=== PATIENT | female | born 1990 | race African-American/Black ===

== ENCOUNTER 2016-08-24 12:10 | Emergency (ER) | payer SELFPAY ==
[2016-08-24 12:28] VITALS: BP 120/88
--- NOTE | 2016-08-24 13:00 | EDM.PDOC ---
ED HPI GENERAL MEDICAL PROBLEM - General Chief Complaint: General Stated Complaint: BREAST PAIN Time Seen by Provider: 08/24/16 12:43 Source of Information: Reports: Patient History Limitations: Reports: No Limitations - History of Present Illness INITIAL COMMENTS - FREE TEXT/NARRATIVE: Patient is a 26-year-old female who presents to the ED with concerns of bilateral breast pain and having a STD's. In addition patients last menstrual cycle was August 18, 2016 and was short and thus she is concerned about being . Patient states her fianc traveled back to [place] and had sexual intercourse with another female of unknown sexual history. She is concerned she may have STDs. At this point she does not have any abnormal vaginal discharge or sores present. She's never been tested for HIV/AIDS. She did take a test at home that show negative. She denies a history of having STDs. Breast tenderness started with menstrual cycle. Past medical history: Hypercholesterolemia and she is medicated unknown name. Surgical history includes breast implants. Patient smokes 4 cigarettes a day. Occasional alcohol use. Denies recreational drugs. Breast Pain Score (Numeric/FACES): 5 - Related Data Allergies Allergy/AdvReac Type Severity Reaction Status Date / Time No Known Allergies Allergy Verified 08/24/16 12:24 Home Meds: Home Meds Lipitor. 08/24/16 [History] ED ROS GENERAL - Review of Systems Review Of Systems: See Below Constitutional: Denies: Fever, Chills, Malaise, Weakness, Decreased Appetite Respiratory: Reports: No Symptoms Cardiovascular: Reports: No Symptoms GI/Abdominal: Reports: No Symptoms Musculoskeletal: Reports: No Symptoms Skin: Reports: No Symptoms Neurological: Reports: No Symptoms ED EXAM, GENERAL - Physical Exam Exam: See Below Exam Limited By: No Limitations General Appearance: Alert, WD/WN, No Apparent Distress Eye Exam: Bilateral Eye: PERRL Ears: Hearing Grossly Normal Nose: Normal Inspection Throat/Mouth: Normal Inspection, Normal Oropharynx, Normal Voice, No Airway Compromise Neck: Normal Inspection, Supple, Non-Tender, Full Range of Motion. No: Lymphadenopathy (L), Lymphadenopathy (R) Respiratory/Chest: No Respiratory Distress, Lungs Clear, Normal Breath Sounds, No Accessory Muscle Use, Chest Non-Tender Cardiovascular: Normal Peripheral Pulses, Regular Rate, Rhythm Peripheral Pulses: 2+: Radial (R) GI/Abdominal: Normal Bowel Sounds, Soft, Non-Tender, No Organomegaly, No Distention (Female) Exam: Deferred Back Exam: Normal Inspection, Full Range of Motion. No: CVA Tenderness (L), CVA Tenderness (R) Extremities: Normal Inspection Neurological: Alert, Oriented, CN II-XII Intact, Normal Cognition, No Motor/ Sensory Deficits Psychiatric: Normal Affect, Normal Mood Skin Exam: Warm, Dry, Intact, Normal Color, No Rash Course - Vital Signs Last Recorded V/S: Last Vital Signs Temp 98.0 F 08/24/16 12:24 Pulse 84 08/24/16 12:24 Resp BP 120/88 08/24/16 12:24 Pulse Ox 100 08/24/16 12:24 - Re-Assessments/Exams Free Text/Narrative Re-Assessment/Exam: 08/24/16 12:59 Will obtain urine HCG and G/C. All additional testing to be obtained at [facility]. Number provided to patient. 08/24/16 13:17 Patient has been in contact with [facility]. They will do all the testing there. Patient requests to be discharged from the hospital. Cancelled testing ordered for here. Departure - Departure Time of Disposition: 13:17 Disposition: Home, Self-Care 01 Condition: good Clinical Impression: Concern about STD in female without diagnosis - Discharge Information Instructions: Sexually Transmitted Disease Referrals: PCP,None [Primary Care Provider] - Forms: ED Department Discharge Additional Instructions: Go to [facility] for STD and Testing. Refrain from sexual intercourse until results available. Return to the ED as needed.
== END 2016-08-24 13:46 | disposition home or self-care (01) ==
LOC: JD.ED 12:10
DX: Z20.2 Contact with and (suspected) exposure to infections with a predominantly sexual mode of transmission (principal); F17.210 Nicotine dependence, cigarettes, uncomplicated
CPT/HCPCS: 99282; 99283

== ENCOUNTER 2016-10-02 18:00 | Emergency (ER) | payer SELFPAY ==
--- NOTE | 2016-10-02 18:30 | EDM.PDOC ---
ED HPI GENERAL MEDICAL PROBLEM - General Chief Complaint: Lower Extremity Injury/Pain Stated Complaint: LEFT ANKLE PAIN,SWELLING Time Seen by Provider: 10/02/16 18:18 Source of Information: Reports: Patient History Limitations: Reports: No Limitations - History of Present Illness INITIAL COMMENTS - FREE TEXT/NARRATIVE: The patient is a 26-year-old female with a chief complaint of left ankle pain. She does not recall an injury. She states that it started hurting about 3 days ago. The pain has been persistent. It's worse with movement. Worse with standing and walking. Better with rest. She has not tried any [id number] medications for this pain. She does not have any additional joint pain. No fever. No systemic symptoms. No additional complaint. No history of similar symptoms previously. Left Ankle Pain Score (Numeric/FACES): 5 - Related Data Allergies Allergy/AdvReac Type Severity Reaction Status Date / Time No Known Allergies Allergy Verified 10/02/16 18:08 Home Meds: Home Meds Ibuprofen 600 mg PO QID PRN #40 tablet 10/02/16 [Rx] atorvaSTATin [Lipitor] 10/02/16 [History] Past Medical History Cardiovascular History: Reports: High Cholesterol Social & Family History - Family History Family Medical History: Noncontributory - Tobacco Use Smoking Status *Q: Unknown Ever Smoked Years of Tobacco use: 9 Packs/Tins Daily: 1 Review of Systems - Review of Systems Review Of Systems: See Below Constitutional: Reports: No Symptoms. Denies: Fever Musculoskeletal: Reports: Leg Pain ED EXAM, GENERAL - Physical Exam Exam: See Below Exam Limited By: No Limitations General Appearance: Alert, WD/WN, No Apparent Distress Throat/Mouth: Normal Voice Head: Atraumatic, Normocephalic Neck: Normal Inspection Respiratory/Chest: No Respiratory Distress Extremities: Normal Inspection, Other (Left lower extremity: No knee effusion, no tenderness of the left knee or left tibia/. No left ankle effusion. No medial or lateral malleolus tenderness. Patient is tender along the left Achilles tendon throughout the course of the tendon. There is no tenderness of the heel of the foot. No additional foot tenderness. Full range of motion.) Course - Vital Signs Last Recorded V/S: Last Vital Signs Temp 37.1 C 10/02/16 18:06 Pulse 89 10/02/16 18:06 Resp 16 10/02/16 18:06 BP 110/81 10/02/16 18:06 Pulse Ox 100 10/02/16 18:06 - Re-Assessments/Exams Free Text/Narrative Re-Assessment/Exam: 10/02/16 18:27 Exam consistent with Achilles tendinitis. No evidence of rupture. No recent antibiotics. No definite injury though patient associates onset of pain with a new pair of shoes. Advised her to rest, use ice and ibuprofen, follow-up next week in clinic if not better. Departure - Departure Time of Disposition: 18:28 Disposition: Home, Self-Care 01 Clinical Impression: Achilles tendonitis Qualifiers: Laterality: left Qualified Code(s): M76.62 - Achilles tendinitis, left leg - Discharge Information Prescriptions: Ibuprofen 600 mg PO QID PRN #40 tablet PRN Reason: Pain Forms: ED Department Discharge Additional Instructions: 1. Rest. No strenuous exercise until your foot is back to normal. 2. Ice area of pain off and on throughout the day 3. Take ibuprofen as needed for pain 4. Wear comfortable shoes 5. Follow up with a primary doctor next week if not improved. You may call [phone] if you'd like to schedule with a provider here.
== END 2016-10-02 18:40 | disposition home or self-care (01) ==
LOC: JD.ED 18:00
CPT/HCPCS: 99282; 99283

== ENCOUNTER 2016-10-05 21:38 | Emergency (ER) | payer SELFPAY ==
[2016-10-05 21:51] VITALS: BP 112/77
--- NOTE | 2016-10-05 22:34 | EDM.PDOC ---
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 She states that she took a home test today and that it was equivocal. She reports pelvic cramping for the past 2 weeks and slight vaginal spotting 3 days ago, but none since. Her LMP was 09/15/2016. She is G3 T2 A1 L2. The patient does not have a PCP. - Related Data Allergies Allergy/AdvReac Type Severity Reaction Status Date / Time No Known Allergies Allergy Verified 10/05/16 21:48 Home Meds: Home Meds Ibuprofen 600 mg PO QID PRN #40 tablet 10/02/16 [Rx] atorvaSTATin [Lipitor] 20 mg PO DAILY 10/02/16 [History] Past Medical History Cardiovascular History: Reports: High Cholesterol MANAGER SPRING History: Reports: : 3 Para: 2 - Past Surgical History Female Surgical History: Reports: Breast Implant Social & Family History - Family History Family Medical History: Noncontributory - Tobacco Use Smoking Status *Q: Current Every Day Smoker Years of Tobacco use: 11 Packs/Tins Daily: 0.1 - Alcohol Use Alcohol Use History: Yes Alcohol Use Frequency: Socially - Recreational Drug Use Recreational Drug Use: No - Living Situation & Occupation Living situation: Reports: , with Spouse, with Family (Daughter) 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[place]) ED ROS GENERAL - Review of Systems Review Of Systems: See Below Constitutional: Reports: No Symptoms HEENT: Reports: No Symptoms Respiratory: Reports: No Symptoms Cardiovascular: Reports: No Symptoms Endocrine: Reports: No Symptoms GI/Abdominal: Reports: No Symptoms : Reports: No Symptoms Musculoskeletal: Reports: No Symptoms Skin: Reports: No Symptoms Neurological: Reports: No Symptoms Psychiatric: Reports: No Symptoms Hematologic/Lymphatic: Reports: No Symptoms Immunologic: Reports: No Symptoms ED EXAM, GENERAL - Physical Exam Exam: See Below Exam Limited By: No Limitations General Appearance: Alert, WD/WN, No Apparent Distress Eye Exam: Bilateral Eye: Normal Inspection Ears: Normal External Exam, Hearing Grossly Normal Nose: Normal Inspection, No Blood Throat/Mouth: Normal Inspection, Normal Lips, Normal Voice, No Airway Compromise Head: Atraumatic, Normocephalic Neck: Normal Inspection, Full Range of Motion Respiratory/Chest: No Respiratory Distress, Lungs Clear, Normal Breath Sounds, No Accessory Muscle Use Cardiovascular: Normal Peripheral Pulses, Regular Rate, Rhythm, No Gallop, No JVD, No Murmur, No Rub Peripheral Pulses: 4+: Radial (L), Radial (R) GI/Abdominal: Normal Bowel Sounds, Soft, Non-Tender, No Organomegaly, No Distention, No Abnormal Bruit, No Mass (Female) Exam: Deferred Rectal (Female) Exam: Deferred Back Exam: Normal Inspection, Full Range of Motion, NT Extremities: Normal Inspection, Normal Range of Motion, No Pedal Edema, Normal Capillary Refill Neurological: Alert, Oriented, Normal Cognition, No Motor/Sensory Deficits Psychiatric: Normal Affect Skin Exam: Warm, Dry, Intact, Normal Color, No Rash Lymphatic: No Adenopathy Course - Vital Signs Last Recorded V/S: Last Vital Signs Temp 36.8 C 10/05/16 21:49 Pulse 65 10/05/16 21:49 Resp 14 10/05/16 21:49 BP 112/77 10/05/16 21:49 Pulse Ox 100 10/05/16 21:49 - Orders/Labs/Meds Labs: Laboratory Tests 10/05/16 Range/Units 21:55 Urine HCG, Qual Negative (NEGATIVE) - Re-Assessments/Exams Free Text/Narrative Re-Assessment/Exam: 10/05/16 22:31 I recommended that the patient wait a few days to repeat a home test, however, a urine test was ordered and run prior to my evaluation of the patient. It is negative. I will refer her to Traci Scott for general health concerns. Departure - Departure Time of Disposition: 22:32 Disposition: Home, Self-Care 01 Condition: Good Clinical Impression: Pelvic cramping - Discharge Information Instructions: Pelvic Pain, Female, [id number] Referrals: PCP,None [Primary Care Provider] - Traci Scott PA-C [Physician Vocational Nurse] - Forms: ED Department Discharge Additional Instructions: You were seen in the emergency room for pelvic cramping and spotting, and concern of possible . A urine test was performed and returned as negative. Follow-up with Traci Scott in the clinic for general health issues. If any other problems, please do not hesitate to return to the ER.
== END 2016-10-05 22:35 | disposition home or self-care (01) ==
LOC: JD.ED 21:38
DX: R10.2 Pelvic and perineal pain (principal); F17.210 Nicotine dependence, cigarettes, uncomplicated
CPT/HCPCS: 81025; 99282; 99284